=== PATIENT | male | born 1960 | race Caucasian/White ===

== ENCOUNTER 2017-11-10 14:46 | Emergency (ER) | payer MEDICAID ==
[~2017-11-10] VITALS: Ht 165.1 cm; Wt 56.0 kg
[~2017-11-10 14:46] MED LIST: CITA20TA19 PO; [UNRECOGNIZED DRUG - REMARK]
[2017-11-10 15:14] VITALS: BP 112/80
[2017-11-10] MEDS ORDERED: TETANUS, DIPHTHERIA, PERTUSSIS VAC/PF 0.5ML (>7YR OLD) IM ONE (16:00)
[2017-11-10] MEDS ORDERED: ACETAMINOPHEN WITH CODEINE 300/30MG TABLET PO ONE (16:00)
== END 2017-11-10 18:43 | disposition left against medical advice (07) ==
LOC: ER 14:51
DX: S01.01XA Laceration without foreign body of scalp, initial encounter (principal); G40.909 Epilepsy, unspecified, not intractable, without status epilepticus; F32.9 Major depressive disorder, single episode, unspecified; F17.200 Nicotine dependence, unspecified, uncomplicated; Z59.0 Homelessness; Z85.46 Personal history of malignant neoplasm of prostate; Y04.0XXA Assault by unarmed brawl or fight, initial encounter; Y93.89 Activity, other specified; Y92.89 Other specified places as the place of occurrence of the external cause
CPT/HCPCS: 99283; A4217; Z7610

== ENCOUNTER 2019-09-23 13:07 | Emergency (ER) | payer MEDICAID ==
[~2019-09-23] VITALS: Ht 165.1 cm; Wt 59.0 kg
[~2019-09-23 13:07] MED LIST changes: -[UNRECOGNIZED DRUG - REMARK]
[2019-09-23 13:47] VITALS: BP 102/71
[2019-09-23] MEDS ORDERED: BACITRACIN ZINC OINT UDPKT TOP ONE (14:30)
[2019-09-23] MEDS ORDERED: TETANUS, DIPHTHERIA, PERTUSSIS VAC/PF 0.5ML (>7YR OLD) IM ONE (14:30)
== END 2019-09-23 15:06 | disposition home or self-care (01) ==
LOC: ER 13:07
DX: S81.852A Open bite, left lower leg, initial encounter (principal); W54.0XXA Bitten by dog, initial encounter; Y93.89 Activity, other specified; Y92.89 Other specified places as the place of occurrence of the external cause
CPT/HCPCS: 73562; 90471; 90715; 99283

== ENCOUNTER 2022-12-09 13:41 | Emergency (ER) | payer MEDICAID ==
[~2022-12-09] VITALS: Ht 170.2 cm; Wt 70.0 kg
[2022-12-09] MEDS ORDERED: HALOPERIDOL LACTATE 5MG/ML VIAL IM STA (18:11)
[2022-12-09] MEDS ORDERED: LORAZEPAM 2MG/ML CPJ IM STA (18:11)
[2022-12-09 19:44] LABS: BASOPHILS % 0.6 % (0.0-2.0); EOSINOPHILS % 1.2 % (0.0-5.0); HEMATOCRIT. 40.5 % (42.0-52.0); HEMOGLOBIN. 13.5 g/dL (14.0-18.0); LYMPHOCYTES % 26.7 % (20.0-50.0); MEAN CORPUSCULAR HEMOGLOBIN 30.8 pg (28.0-32.0); MEAN CORPUSCULAR VOLUME 92.3 fL (80.0-94.0); MEAN PLATELET VOLUME 9.7 fl (7.4-10.4); MONOCYTES % 10.6 % (2.0-8.0); NEUTROPHILS % 60.9 % (40.0-76.0); PLATELET 183 x1000/uL (130-400); RED BLOOD CELL COUNT 4.39 mill/uL (4.7-6.1); RED CELL DISTRIBUTION WIDTH 13.5 % (11.6-14.6)
[2022-12-09 19:52] LABS: CHLORIDE 110 mEq/L (98-107)
[2022-12-09 19:59] LABS: ETHANOL BLOOD < 10 mg/dL
[2022-12-09] MEDS ORDERED: LORAZEPAM 2MG/ML CPJ IM NR (23:30)
[2022-12-09] MEDS ORDERED: HALOPERIDOL LACTATE 5MG/ML VIAL IM NR (23:30)
[2022-12-10 09:45] VITALS: BP 136/74
== END 2022-12-10 10:01 | disposition home or self-care (01) ==
LOC: ER 13:41
DX: F14.10 Cocaine abuse, uncomplicated (principal); F32.9 Major depressive disorder, single episode, unspecified; Z85.6 Personal history of leukemia
CPT/HCPCS: 36415; 80053; 80320; 85025; 96372; 99284; J1630; J2060; Z7610; G0480

== ENCOUNTER 2024-03-03 13:58 | Emergency (ER) | payer MEDICAID ==
[~2024-03-03] VITALS: Ht 167.6 cm; Wt 61.0 kg
[2024-03-03 14:03] VITALS: BP 121/42; PULSE 85; RESP 20; TEMP 98.1; O2SAT 99
== END 2024-03-03 15:00 | disposition left against medical advice (07) ==
LOC: ER 14:48
DX: R21 Rash and other nonspecific skin eruption (principal); Z53.21 Procedure and treatment not carried out due to patient leaving prior to being seen by health care provider
CPT/HCPCS: 99281

== ENCOUNTER 2024-06-05 03:06 | Emergency (ER) | payer MEDICAID ==
[~2024-06-05] VITALS: Ht 170.2 cm; Wt 78.0 kg
[2024-06-05 03:10] VITALS: O2SAT 99
[2024-06-05 05:01] LABS: HEMATOCRIT. 25.1 % (42.0-52.0); HEMOGLOBIN. 7.8 g/dL (14.0-18.0); MEAN CORPUSCULAR HEMOGLOBIN 24.1 pg (28.0-32.0); MEAN CORPUSCULAR HGB CONC 31.2 g/dL (31.0-37.0); MEAN CORPUSCULAR VOLUME 77.1 fL (80.0-94.0); MEAN PLATELET VOLUME 7.6 fl (7.4-10.4); PLATELET 306 x1000/uL (130-400); RED BLOOD CELL COUNT 3.26 mill/uL (4.7-6.1); WHITE BLOOD COUNT 8.3 x1000/uL (4.5-11.0)
[2024-06-05 05:02] LABS: DIFFERENTIAL COMMENT 1
[2024-06-05 05:09] LABS: CHLORIDE 106 mEq/L (98-107); POTASSIUM 3.8 mEq/L (3.5-5.1); SODIUM 136 mEq/L (136-145)
[2024-06-05 05:10] LABS: CARBON DIOXIDE 27 mEq/L (21-32)
[2024-06-05 05:11] LABS: CALCIUM 8.3 mg/dL (8.7-10.4)
[2024-06-05 05:15] LABS: CREATININE 0.8 mg/dL (0.6-1.3)
[2024-06-05 05:16] LABS: GLUCOSE 81 mg/dL (70-105); UREA NITROGEN BLOOD 18 mg/dL (9-23)
[2024-06-05 05:17] LABS: ACETAMINOPHEN < 2 ug/mL (10-30)
[2024-06-05 06:35] LABS: ETHANOL BLOOD < 10 mg/dL (<10)
[2024-06-05 06:51] LABS: HYPOCHROMASIA 1+; MICROCYTOSIS 1+; PLATELET ESTIMATE NORMAL
[2024-06-05 07:32] VITALS: BP 103/67; PULSE 81; RESP 15; TEMP 36.44736; O2SAT 99
== END 2024-06-05 07:34 | disposition home or self-care (01) ==
LOC: ER 03:06
DX: T65.91XA Toxic effect of unspecified substance, accidental (unintentional), initial encounter (principal); F32.A Depression, unspecified; Z85.9 Personal history of malignant neoplasm, unspecified; Y92.89 Other specified places as the place of occurrence of the external cause
CPT/HCPCS: 36415; 80048; 80307; 80320; 80329; 85025; 99283; G0480